=== PATIENT | male | born 1985 | race Caucasian/White ===

== ENCOUNTER 2021-04-16 09:25 | Emergency (ER) | payer SELFPAY ==
[2021-04-16 09:26] VITALS: BP 128/87; PULSE 87; RESP 16; TEMP 36.3; O2SAT 100; BMI 25.2
--- NOTE | 2021-04-16 10:02 | EX.ED.VIS.UR ---
HPI HPI - URI History of Present Illness Chief Complaint: Shortness of Breath Narrative Narrative: 35-year-old male with history of PTSD and anxiety not on any medication presenting with a cough and mild shortness of breath. He states that his throat is scratchy. He has been taking DayQuil and NyQuil for the last couple of days. Patient reports that he is homeless. He denies fever, chills, body aches, change in taste or smell. He states he was diagnosed with COVID-19 3 months ago while he [place]. He states that he had mild symptoms and recovered quickly. ROS ROS ED Constitutional Constitutional ED: Denies chills or fever(s) Eyes Eyes: Denies blurry vision or diplopia ENT ENT ED: Reports sore throat; Denies rhinorrhea Cardiovascular Cardiovascular: Denies chest pain or palpitations Respiratory/Chest Respiratory/Chest: Reports cough and dyspnea; Denies dyspnea on exertion or sputum Gastrointestinal Gastrointestinal: Denies abdominal pain, nausea or vomiting Genitourinary Genitourinary ED: Denies dysuria or hematuria Musculoskeletal Musculoskeletal: Denies arthralgias, back pain, myalgias or neck pain Integumentary Denies Abrasions or rash Neurologic Neurologic: Denies headache(s) or paresthesias PFSH PFSH Medical History no medical history Home Medications sertraline [Zoloft] 100 mg PO QHS 07/07/17 [History Last Taken 07/06/17] benzonatate [Tessalon Perles] 100 mg PO TID PRN #14 cap 04/16/21 [Rx Last Taken Unknown] Allergy/AdvReac Type Severity Reaction Status Date / Time No Known Allergies Allergy Verified 04/16/21 09:26 Social History Smoking Status: Current every day smoker tobacco type: cigarettes EXAM Physical Exam Const Vital Signs: 04/16/21 09:26 04/16/21 10:13 Temperature 97.4 F L 97.4 F L Temperature Source Temporal Temporal Pulse Rate 87 87 Respiratory Rate 16 16 Respiratory Effort Normal Non-Labored Respiratory Depth Normal Respiratory Pattern Normal Blood Pressure 128/87 H 128/87 H Blood Pressure Mean 100 100 Pulse Ox 100 100 Oxygen Delivery Method Room Air Room Air Positive well nourished General Appearance ED: NAD; Negative for pallor HEENT Reports moist mucous membranes normocephalic and atraumatic Resp normal respiratory effort and clear to auscultation bilaterally Cardio Rate: regular rate Rhythm: regular rhythm Neuro oriented x3 Sensorium / Orientation: alert Psych mental status grossly normal Skin General Skin Exam: Negative for jaundice or pallor Rashes: no rashes MDM MDM MDM Narrative Medical decision making narrative: Patient presenting with a cough for 3 days. He is already had COVID-19 3 months ago so I do not believe we need to retest him. Patient is only having mild symptoms currently. I will obtain a chest x-ray and given Tessalon Perles for his cough. Otherwise his vital signs are completely normal. Chest x-ray my interpretation shows no acute cardiopulmonary process and the radiologist does agree. Patient's vital signs again are normal. I do not believe he needs testing for Covid since he already had COVID-19. Patient is to alternate Tylenol and ibuprofen for fever or headache. Patient is given a perception for Tessalon Perles. Patient to return precautions. Stable for discharge home at this time. Impression: 1. Viral syndrome Radiography Diagnostic Testing: Radiology Impression Chest X-Ray 04/16/21 10:10 IMPRESSION: No radiographic evidence of acute cardiopulmonary disease. No interval change. at 1041 Reported and signed by: Cory Thornton MD Electronically Signed: Cory Thornton MD at 10:40 EDT Tel , Service support , Discharge Plan Triage Chief Complaint: Shortness of Breath ED Provider: Jose Falk Dx/Rx/DC Orders Instructions: ED Viral Syndrome (Adult) Prescriptions: New benzonatate [Tessalon Perles] 100 mg capsule 100 mg PO TID PRN (Reason: cough) Qty: 14 RF: 0 No Action sertraline [Zoloft] 100 MG tablet 100 mg PO QHS RF: 0 Primary Care Provider: Manuel Goodwin Referrals: [facility] [Outside] - As soon as possible Manuel Goodwin MD [Primary Care Provider] - Disposition Disposition: Home, Self Care
[2021-04-16] MEDS: Benzonatate 100 MG Capsule 200 MG PO (10:10)
--- NOTE | 2021-04-16 10:10 | RAD_ITS ---
History: cough EXAMINATION/TECHNIQUE: XR Chest 1 View: Portable COMPARISON: July 08, 2017 FINDINGS: LINES/DEVICES: None. LUNGS: No consolidation, edema or effusion. No pneumothorax. MEDIASTINUM AND CARDIOVASCULAR STRUCTURES: Cardiac silhouette not enlarged. Central airways and mediastinal contour are unremarkable. BONES AND SOFT TISSUES: Unremarkable. RAD/Chest 1 View (Portable) IMPRESSION: No radiographic evidence of acute cardiopulmonary disease. No interval change. at 1041 Reported and signed by: Cory Thornton MD Electronically Signed: Cory Thornton MD at 10:40 EDT Tel , Service support ,
[2021-04-16 10:13] VITALS: BP 128/87; PULSE 87; RESP 16; TEMP 36.3; O2SAT 100
[2021-04-16 11:20] VITALS: PULSE 76; RESP 18; O2SAT 97
== END 2021-04-16 11:38 | disposition home or self-care (01) ==
LOC: ED 11:26
PROVIDERS: Emergency Provider Student in an Organized Health Care Education/Training Program
DX: B34.9 Viral infection, unspecified (principal); Z59.00 Homelessness unspecified; F43.10 Post-traumatic stress disorder, unspecified; F17.210 Nicotine dependence, cigarettes, uncomplicated; Z79.899 Other long term (current) drug therapy; Z86.16 Personal history of COVID-19
CPT/HCPCS: 71045; 99283